=== PATIENT | female | born 1985 | race Caucasian/White ===

== ENCOUNTER → 2020-02-13 | Outpatient (CLI) | payer OTHER ==
--- NOTE | 2020-02-13 09:21 | REP ---
INDICATION: LIVER AND SPLEEN ENLARGEMENT, CUTANEOUS MASTOCYTOS MAIN REG. COMPARISON: None. TECHNIQUE: Complete abdominal sonography: FINDINGS: Scanning through the right upper quadrant of the abdomen demonstrates normal size, thin walled gallbladder without evidence of stone. There are 2 small foci of echogenicity along the anterior wall the gallbladder consistent with polyps. There is mobile echogenic debris consistent with minimal sludge in the gallbladder. No stone is seen. Common bile duct is normal measuring 2 mm in greatest diameter. There is a slightly heterogeneous hyperechoic nodule in the liver just posterior to the confluence of the portal veins in the right lobe measuring 2.6 x 2.3 x 2.1 cm. This is consistent with a small benign hemangioma. The liver is not enlarged measuring 16.0 cm in midclavicular length. Scanning of the left upper quadrant demonstrates a normal size homogeneous spleen. This measures 10.5 cm in greatest diameter. There is no evidence of ascites. Renal cortical echogenicity pattern is normal and contours are smooth bilaterally. No hydronephrosis is seen. Right renal dimensions are 10.8 x 5.8 x 4.1 cm. Left kidney measures 10.4 x 4.8 x 4.8 cm. A normal caliber, 1.7 cm, abdominal aorta is seen. IMPRESSION: 2.6 cm hyperechoic lesion centrally in the liver most consistent with benign hemangioma. Consider follow-up sonography in 4-6 months time. There is some sludge and 2 tiny polyps are seen in the gallbladder wall. Otherwise negative. <Electronically signed by Roman Benjamin > 02/13/20 [id number]
== END ==
LOC: M RAD 07:29
PROVIDERS: ATTEND Internal Medicine Hematology & Oncology
DX: K76.9 Liver disease, unspecified (principal); D47.01 Cutaneous mastocytosis

== ENCOUNTER → 2020-03-29 | Outpatient (REF) | payer OTHER | LOC: M LAB REF 14:02 | PROVIDERS: ATTEND Dermatology | DX: D23.5 Other benign neoplasm of skin of trunk (principal); R21 Rash and other nonspecific skin eruption | CPT/HCPCS: 11103; 11104; 11105; 36415; 83088; 83519; 88305; G0463 ==

== ENCOUNTER → 2020-04-01 | Outpatient (REF) | payer OTHER | LOC: M LAB REF 09:34 | PROVIDERS: ATTEND Dermatology | DX: R21 Rash and other nonspecific skin eruption (principal) ==

== ENCOUNTER → 2020-09-27 | Outpatient (CLI) | payer OTHER ==
[2020-09-27 09:37] LABS: BASO % 0.5 % (0.0-1.0); EOS # 0.1 10^3/uL (0.0-0.5); HEMATOCRIT 39.9 % (36.0-47.0); HEMOGLOBIN 12.5 g/dl (12.0-15.5); LYMPH # 1.7 10^3/uL (1.5-5.0); LYMPH % 27.9 % (24.0-44.0); MEAN CORPUSCULAR HEMOGLOBIN 27.2 pg (27.0-33.0); MEAN CORPUSCULAR HGB CONC 31.3 g/dl (32.0-36.5); MEAN CORPUSCULAR VOLUME 86.9 fl (80.0-96.0); MONO # 0.4 10^3/uL (0.0-0.8); MONO % 6.4 % (2.0-8.0); NEUTROPHILS # 3.8 10^3/uL (1.5-8.5); NEUTROPHILS % 62.9 % (36.0-66.0); PLATELET COUNT, AUTOMATED 324 10^3/uL (150-450); RED BLOOD COUNT 4.59 10^6/uL (4.00-5.40); WHITE BLOOD COUNT 6.1 10^3/uL (4.0-10.0)
--- NOTE | 2020-09-27 09:41 | REP ---
INDICATION: MASTOCYTOSIS, LIVER LESION POSS BENIGN HEMANGIOMA / LABS 2ND COMPARISON: 02/13/2020 TECHNIQUE: Real time B-mode delgado scale ultrasound examination using curved array transducer. FINDINGS: Liver again demonstrates stable 2.6 cm hyperechoic mass consistent with hemangioma and unchanged. No further/new hepatic lesions are identified. Visualized portions of the pancreas are normal. The spleen is unremarkable. The gallbladder again demonstrates layering sludge and 2 stable benign polyps measuring 3 mm and 4 mm. No gallbladder wall thickening or pericholecystic fluid. No biliary ductal dilatation is appreciated and the common bile duct measures 2 mm diameter. The bilateral kidneys are normal in reniform shape without hydronephrosis or obvious abnormality. Right kidney measures 11.1 x 5.0 x 5.2 cm. Left kidney measures 9.8 x 5.3 x 5.5 cm. No ascites. IMPRESSION: 1. Stable hepatic lesion consistent with hemangioma. 2. Gallbladder again demonstrates small amount of layering sludge and two benign polyps. <Electronically signed by Wolfgang Whitehead > 09/27/20 [id number]
[2020-09-27 10:06] LABS: ALBUMIN 3.7 GM/DL (3.2-5.2); ALT/SGPT 27 U/L (12-78); BILIRUBIN,TOTAL 0.3 MG/DL (0.2-1.0); BLOOD UREA NITROGEN 17 MG/DL (7-18); CARBON DIOXIDE LEVEL 26 MEQ/L (21-32); CHLORIDE LEVEL 108 MEQ/L (98-107); CREATININE FOR GFR 0.81 MG/DL (0.55-1.30); GLOMERULAR FILTRATION RATE > 60.0 (>60); GLUCOSE, FASTING 82 MG/DL (70-100); LDH LACTATE DEHYDROGENASE 131 U/L (84-246); POTASSIUM SERUM 4.7 MEQ/L (3.5-5.1); SODIUM LEVEL 140 MEQ/L (136-145)
[2020-09-29 05:09] LABS: BETA 2 MICROGLOBULIN 1.4 mg/L (0.6-2.4); TRYPTASE 6.2 ug/L (2.2-13.2)
== END ==
LOC: M LAB 08:20
PROVIDERS: ATTEND Internal Medicine Hematology & Oncology
DX: D47.01 Cutaneous mastocytosis (principal); K82.4 Cholesterolosis of gallbladder; K82.8 Other specified diseases of gallbladder; K76.89 Other specified diseases of liver

== ENCOUNTER → 2020-12-02 | Outpatient (CLI) | payer OTHER ==
[~2020-12-02] MED LIST: PROHANCE 279.3MG/ML 15ML VIAL As Ordered ONE
--- NOTE | 2020-12-04 21:24 | REPVR ---
PROCEDURE INFORMATION: Exam: MR Lumbar Spine Without and With Contrast Exam date and time: 12/02/2020 6:07 PM Age: 35 years old Clinical indication: Pain and condition or disease; Other: Mastocytosis; Low back pain; Additional info: Lbp TECHNIQUE: Imaging protocol: Multiplanar magnetic resonance images of the lumbar spine without and with intravenous contrast. Contrast material: PROHANCE; Contrast volume: 12 ml; Contrast route: INTRAVENOUS (IV); COMPARISON: ABD COMPLETE US 09/27/2020 8:32 AM FINDINGS: Vertebrae: T1 weighted images demonstrate decreased signal throughout the vertebrae, findings which can be seen in this age group with incomplete marrow conversion but also in mastocytosis involvement of the vertebral marrow space. This should be correlated with clinical evaluation. Spinal cord: Normal signal. No cord compression. L1-L2: No significant disc disease. No significant spinal canal stenosis. No neural foraminal stenosis. L2-L3: No significant disc disease. No significant spinal canal stenosis. No neural foraminal stenosis. L3-L4: No significant disc disease. No significant spinal canal stenosis. No neural foraminal stenosis. L4-L5: No significant disc disease. No significant spinal canal stenosis. No neural foraminal stenosis. L5-S1: Diffusely bulging annulus L5-S1 with a transverse tear in the posterior annulus. No spinal stenosis. Soft tissues: Unremarkable. IMPRESSION: 1. T1 weighted images demonstrate decreased signal throughout the vertebrae, findings which can be seen in this age group with incomplete marrow conversion but also in mastocytosis involvement of the vertebral marrow space. This should be correlated with clinical evaluation. 2. Mild discogenic degenerative changes at L5-S1. Electronically signed by: Yuri Saldaña On 12/04/2020 21:23:33 PM
== END ==
LOC: M RAD 16:57
PROVIDERS: ATTEND Internal Medicine Hematology & Oncology
DX: D47.01 Cutaneous mastocytosis (principal); M51.26 Other intervertebral disc displacement, lumbar region
CPT/HCPCS: 72158; A9576